=== PATIENT | male | born 1980 | race Caucasian/White ===

== ENCOUNTER 2023-01-14 06:19 | Day surgery (SDC) | payer BC ==
[~2023-01-14] VITALS: Ht 165.1 cm; Wt 96.2 kg
[~2023-01-14 06:19] MED LIST: BUPR300T92 PO; LEXA1TAB PO; TRAZ-252 PO; ceFAZolin SOD 2 GM in IV 1 EA IV ONE
[2023-01-14] MEDS ORDERED: LR 1,000 ML IV SCH (06:40)
[2023-01-14] MEDS ORDERED: fentaNYL 100 MCG/2 ML INJECTION As Ordered ONE (07:03)
[2023-01-14] MEDS ORDERED: KETOROLAC 60MG 2ML VIAL As Ordered ONE (07:04)
[2023-01-14] MEDS ORDERED: propofoL 200 MG/20 ML VIAL As Ordered ONE (07:04)
[2023-01-14] MEDS ORDERED: MIDAZOLAM INJ 2MG/2ML VIAL As Ordered ONE (07:04)
[2023-01-14] MEDS ORDERED: ONDANSETRON 4MG 2ML VIAL As Ordered ONE (07:04)
[2023-01-14] MEDS ORDERED: LIDOCAINE 1% SDV 30ML VIAL As Ordered ONE (07:14)
[2023-01-14] MEDS ORDERED: BUPIVACAINE HCL 0.25% 30ML VIAL As Ordered ONE (07:14)
[2023-01-14 08:30] VITALS: BP 116/73
== END 2023-01-14 09:24 | disposition home or self-care (01) ==
LOC: M SDC 06:19
PROVIDERS: ATTEND Urology
DX: Z30.2 Encounter for sterilization (principal); I10 Essential (primary) hypertension; F41.9 Anxiety disorder, unspecified; Z79.899 Other long term (current) drug therapy
CPT/HCPCS: 55250; 88302; J1885; J2250; J2405; J3010; S0020

== ENCOUNTER 2023-02-21 22:11 | Emergency (ER) | payer BC ==
[~2023-02-21 22:11] MED LIST changes: -ceFAZolin SOD 2 GM in IV 1 EA IV ONE
[2023-02-22] MEDS ORDERED: HOME MED LIST COMPLETE! XX SCH (00:50)
[2023-02-22] MEDS ORDERED: ATIV1TAB10 PO (00:50)
[2023-02-22 06:45] VITALS: BP 131/78; TEMP 98.3; O2SAT 100
== END 2023-02-22 08:00 | disposition home or self-care (01) ==
LOC: M ED 22:11
DX: F32.A Depression, unspecified (principal); F41.1 Generalized anxiety disorder; Z79.899 Other long term (current) drug therapy

== ENCOUNTER 2023-09-28 14:18 | Emergency (ER) | payer BC, SELFPAY ==
[~2023-09-28] VITALS: Ht 165.1 cm; Wt 97.3 kg
[~2023-09-28 14:18] MED LIST changes: +ATIV1TAB10 PO
[2023-09-28] MEDS ORDERED: HYDR-643 PO (14:27)
[2023-09-28] MEDS ORDERED: LEXA1TAB2 (14:27)
[2023-09-28 15:15] LABS: BASO # 0.1 10^3/uL (0.0-0.2); BASO % 0.8 % (0.0-1.0); EOS # 0.5 10^3/uL (0.0-0.5); EOS % 7.9 % (0.0-3.0); HEMATOCRIT 53.6 % (42.0-52.0); HEMOGLOBIN 18.2 g/dl (13.5-17.5); LYMPH # 1.2 10^3/uL (1.5-5.0); LYMPH % 19.4 % (24.0-44.0); MEAN CORPUSCULAR HEMOGLOBIN 30.4 pg (27.0-33.0); MEAN CORPUSCULAR VOLUME 89.5 fl (80.0-96.0); MONO # 0.6 10^3/uL (0.0-0.8); MONO % 9.8 % (2.0-8.0); NEUTROPHILS # 3.9 10^3/uL (1.5-8.5); NEUTROPHILS % 61.9 % (36.0-66.0); PLATELET COUNT, AUTOMATED 362 10^3/uL (150-450); RED BLOOD COUNT 5.99 10^6/uL (4.30-6.10); WHITE BLOOD COUNT 6.3 10^3/uL (4.0-10.0)
[2023-09-28] MEDS ORDERED: NS 1,000 ML IV ONE (15:20)
[2023-09-28 15:45] LABS: THYROID STIMULATING HORMONE 2.423 uIU/ML (0.55-4.78)
[2023-09-28 15:46] LABS: ALBUMIN 4.1 G/DL (3.2-5.2); ALKALINE PHOSPHATASE 90 U/L (46-116); ALT/SGPT 25 U/L (7.0-40); AST/SGOT 15 U/L (<34); BILIRUBIN,TOTAL 0.5 MG/DL (0.3-1.2); BLOOD UREA NITROGEN 16 MG/DL (9-23); CALCIUM LEVEL 9.3 MG/DL (8.5-10.1); CARBON DIOXIDE LEVEL 24 MMOL/L (20-31); CHLORIDE LEVEL 110 MMOL/L (98-107); CREATININE FOR GFR 1.04 MG/DL (0.70-1.30); GLOMERULAR FILTRATION RATE > 60.0 (>60); GLUCOSE, FASTING 82 MG/DL (60-100); MAGNESIUM LEVEL 2.3 MG/DL (1.8-2.4); POTASSIUM SERUM 4.2 MMOL/L (3.5-5.1); SODIUM LEVEL 141 MMOL/L (136-145); TOTAL PROTEIN 7.1 G/DL (5.7-8.2)
[2023-09-28 17:08] VITALS: BP 132/70; TEMP 96.9; O2SAT 100
== END 2023-09-28 17:13 | disposition home or self-care (01) ==
LOC: M ED 14:18
DX: E86.0 Dehydration (principal); F41.9 Anxiety disorder, unspecified; I10 Essential (primary) hypertension; Z79.899 Other long term (current) drug therapy